=== PATIENT | female | born 1960 | race African-American/Black ===

== ENCOUNTER 2016-04-09 11:36 | Emergency (ER) | payer BC ==
[~2016-04-09] VITALS: Ht 160 cm; Wt 81.6 kg
[~2016-04-09 11:36] MED LIST: NORT10CA3 PO; OXYC5TAB88 PO; TRAM50TA PO
[2016-04-09 12:15] VITALS: BP 143/79
[2016-04-09] MEDS ORDERED: FLUT9.9S NS (13:04)
[2016-04-09] MEDS ORDERED: AMOX875T PO (13:04)
--- NOTE | 2016-04-09 13:04 | PHYS DOC ---
Past Medical History Past Medical History: Arthritis, GERD, High Cholesterol Additional Past Medical Histor: Peptic Ulcer Past Surgical History: , Hysterectomy, Tonsillectomy Additional Past Surgical Histo: ESOPHAGUS STRETCHED Additional Information: nonsmoker Alcohol Use: None Drug Use: None Adult General Chief Complaint Chief Complaint: EARACHE/EAR PAIN HPI HPI Patient is a 56 year old female who presents with left ear pain starting today. She is recently had subjective fevers and nasal congestion. She denies cough or sore throat. Her was recently diagnosed with influenza. The patient sees a PCP at [facility]. Review of Systems Review of Systems Constitutional: Reports subjective fever. Eyes: Denies change in visual acuity, redness, or eye pain. [] HENT: Denies sore throat. Reports left ear pain and nasal congestion. Respiratory: Denies cough or shortness of breath. [] Integument: Denies rash or skin lesions. [] Neurologic: Denies headache, focal weakness or sensory changes. [] Allergies Allergies Allergies Coded Allergies Type Severity Reaction Last Updated Verified shellfish derived Allergy Intermediate 04/09/16 No Physical Exam Physical Exam Constitutional: Well developed, well nourished, no acute distress, non-toxic appearance. [] HENT: Normocephalic, atraumatic, bilateral external ears normal, oropharynx moist, no oral exudates, nose normal. Right TM without erythema or bulging. Left TM with erythema and bulging. TM is intact. There is no mastoid tenderness or erythema. There is no posterior pharyngeal erythema or tonsillar edema. Bilateral nasal turbinates are markedly swollen and erythematous with purulent drainage. Eyes: PERRLA, EOMI, conjunctiva normal, no discharge. [] Neck: Normal range of motion, no tenderness, supple, no stridor. [] Cardiovascular: Heart rate regular rhythm, no murmur [] Lungs & Thorax: Bilateral breath sounds clear to auscultation without wheezes, rales, or rhonchi. Skin: Warm, dry, no erythema, no rash. [] Neurologic: Alert and oriented X 3, normal motor function, normal sensory function, no focal deficits noted. [] Psychologic: Affect normal, judgement normal, mood normal. [] Current Patient Data Vital Signs Vital Signs Date Time Temp Pulse Resp B/P Pulse Ox O2 Delivery O2 Flow Rate FiO2 04/09/16 12:15 98.4 84 16 96 Room Air 98.4 EKG EKG [] Radiology/Procedures Radiology/Procedures [] Course & Med Decision Making Course & Med Decision Making Pertinent Labs and Imaging studies reviewed. (See chart for details) [] Dragon Disclaimer Dragon Disclaimer This electronic medical record was generated, in whole or in part, using a voice recognition dictation system. Departure Departure Impression: Primary Impression: Otitis media Disposition: HOME, SELF-CARE Condition: STABLE Referrals: NO PCP (PCP) Patient Instructions: Otitis Media, Adult, [id number] Additional Instructions: Please complete all the prescribed antibiotics for your ear infection. Please use the prescribed nasal spray daily to help relieve the pressure in your ear is well. You may take Tylenol or Motrin for pain or fevers. Use according to package instructions. Please follow-up with your doctor if your symptoms continue. Return to emergency department if you have any new or concerning symptoms. Scripts Amoxicillin 875 Mg Tablet1 Tab PO BID #20 TAB Prov:JONATAN SHIELDS 04/09/16 Fluticasone Propionate (Flonase Allergy Relief)9.9 Ml [place].susp2 Sprays NS DAILY #1 BOTTLE Prov:JONATAN SHIELDS 04/09/16 Problem Qualifiers Primary Impression: Otitis media Otitis media type: suppurative Laterality: left Chronicity: acute Recurrence: not specified as recurrent Spontaneous tympanic membrane rupture: without spontaneous rupture Qualified Code: H66.002 - Acute suppurative otitis media without spontaneous rupture of ear drum, left ear JONATAN SHIELDS Apr 09, 2016 13:04
== END 2016-04-09 13:10 | disposition home or self-care (01) ==
LOC: ER 11:36
DX: H66.92 Otitis media, unspecified, left ear (principal); R50.9 Fever, unspecified; R09.81 Nasal congestion; E78.00 Pure hypercholesterolemia, unspecified; Z90.89 Acquired absence of other organs; Z91.013 Allergy to seafood
CPT/HCPCS: 99283